=== PATIENT | female | born 1965 ===

== ENCOUNTER → 2017-11-30 | Outpatient (CLI) | payer MEDICARE | END | disposition home or self-care (01) | LOC: ORTHO 13:35 | DX: M76.891 Other specified enthesopathies of right lower limb, excluding foot (principal); M54.5 Low back pain; Z96.642 Presence of left artificial hip joint ==

== ENCOUNTER → 2017-12-28 | Outpatient (CLI) | payer MEDICARE, MEDICAID | END | disposition home or self-care (01) | LOC: MRI 12:48 | DX: M47.896 Other spondylosis, lumbar region (principal) ==